=== PATIENT | male | born 1950 | race Caucasian/White ===

== ENCOUNTER 2019-01-20 14:57 | Emergency (ER) | payer MEDICARE ==
[~2019-01-20] VITALS: Ht 175.3 cm; Wt 111.1 kg
[2019-01-20] MEDS ORDERED: SODIUM CHLORIDE 0.9% 1000ML 1,000 ML IV SCH (16:00)
[2019-01-20] MEDS ORDERED: INSULIN REGULAR, HUMAN 100 UNIT/1 ML 3ML VIAL ONE (16:33)
[2019-01-20] MEDS ORDERED: INSULIN REGULAR, HUMAN 100 UNIT/1 ML 3ML VIAL IV ONE ×2 (17:00→18:00)
[2019-01-20] MEDS ORDERED: SODIUM CHLORIDE 0.9% 500ML 500 ML IV ONE (17:00)
[2019-01-20] MEDS ORDERED: SODIUM CHLORIDE 0.9% 500ML 500 ML ONE (17:04)
--- NOTE | 2019-01-20 18:49 | NUR ---
REPORT TO WANDA HERNÁNDEZ ALL QUESTIONS ANSWERED
== END 2019-01-20 19:11 | disposition home or self-care (01) ==
LOC: EDBD 14:57 → FSED 14:57
DX: E11.65 Type 2 diabetes mellitus with hyperglycemia (principal); I10 Essential (primary) hypertension; E78.5 Hyperlipidemia, unspecified; Z91.11 Patient's noncompliance with dietary regimen; Z79.84 Long term (current) use of oral hypoglycemic drugs; Z85.528 Personal history of other malignant neoplasm of kidney; Z90.5 Acquired absence of kidney
CPT/HCPCS: 36415; 80048; 80053; 81003; 82948; 99283; J1817; J7030; J7040

== ENCOUNTER 2020-01-14 11:22 | Emergency (ER) | payer MEDICARE ==
[~2020-01-14] VITALS: Ht 175.3 cm; Wt 109.6 kg
[2020-01-14] MEDS ORDERED: SODIUM CHLORIDE 0.9% 1000ML 1,000 ML IV SCH (11:45)
[2020-01-14] MEDS ORDERED: INSULIN REGULAR, HUMAN 100 UNIT/1 ML 3ML VIAL IV ONE (11:45)
[2020-01-14] MEDS ORDERED: ACTOS45 MG PO (12:01)
[2020-01-14] MEDS ORDERED: NORVASC10 MG PO (12:01)
[2020-01-14] MEDS ORDERED: METFORMIN HCL500 MG PO (12:01)
[2020-01-14] MEDS ORDERED: GLIMEPIRIDE2 MG PO (12:01)
[2020-01-14] MEDS ORDERED: IRBESARTAN-HCT1 EAC1 PO (12:01)
[2020-01-14] MEDS ORDERED: ATENOLOL50 MG PO (12:01)
--- NOTE | 2020-01-14 12:36 | Emergency Department Note ---
History of Present Illnes History of Present Illness Chief Complaint: General Medicine Complaints History of Present Illness This is a 69 year old male . Historian: Patient Arrival Mode: Car Advertising Manager Required: No Location: Pt has no symptoms except increased urination and elevated Glucose at home Radiation: Denies non-radiation, Denies back, Denies neck, Denies extremity, Denies abdomen, Denies periumbilical, Denies flank, Denies proximal, Denies distal, Denies other Severity: mild Onset quality: gradual Duration (how long): day(s) (4 days out of medicaitons) Progression: unchanged Chronicity: new Context: Denies recent illness, Denies recent surgery, Denies recent immobilization, Denies recent travel, Denies trauma/injury, Denies new medications, Denies hx of DVT/PE, Denies non-compliance w/ medications, Denies other Relieving factors: none Exacerbating factors: none Associated symptoms: Denies denies other symptoms, Denies confusion, Denies chest pain, Denies cough, Denies diaphoresis, Denies fever/chills, Denies headaches, Denies loss of appetite, Denies malaise, Denies nausea/vomiting, Denies rash, Denies seizure, Denies shortness of breath, Denies syncope, Denies weakness, Denies other Treatments prior to arrival: none Past Medical/Family History Physician Review I have reviewed the patient's past medical and family history. Any updates have been documented here. Past Medical History Recent Fever: No Clinical Suspicion of Infectio: No New/Unexplained Change in Ment: No Past Medical History: Hypertension, Diabetes, Hyperlipedemia Other Medical History: KIDNEY CANCER Other Surgery: PARTIAL NEPHRECTOMY HERNIA REPAIR Social History Smoking Cessation: Never Smoker Alcohol Use: None Any Illegal Drug Use: No Other Last Tetanus: UTD Physical Exam Related Data Allergies: Coded Allergies: No Known Allergies (Unverified , 01/20/19) Vital signs reviewed: Yes (Hyperetensive) Physical Exam CONSTITUTIONAL Constitutional: Present well-developed HENT HENT: Present normocephalic EYES Eyes: Reports conjunctivae normal NECK Neck: Present supple PULMONARY Pulmonary: Present breath sounds normal CARDIOVASCULAR Cardiovascular: Present regular rhythm GASTROINTESTINAL Abdominal: Present soft GENITOURINARY SKIN Skin: Present warm MUSCULOSKELETAL Musculoskeletal: Present ROM normal NEUROLOGICAL Neurological: Present alert, Present oriented x 3, Present no gross motor or sensory deficits PSYCHOLOGICAL Psychological: Present mood/affect normal Results Laboratory Laboratory CBC Plat 65,000 BMP Gluc 417, Cr 1.8 UA trace ketones Repeat FS 307 Lab results reviewed: Yes Assessment & Plan Medical Decision Making MDM DKA, Hyperglycemia, non compliane Assessment & Plan Final Impression: (1) Diabetes (2) Hyperglycemia (3) Thrombocytopenia (4) Renal insufficiency Depart Disposition: HOME, SELF-half-way Meds Active Scripts Amlodipine Besylate (NORVASC) 10 Mg Tab, 10 MG PO DAILY for 15 Days, #15 Prov:SALBADOR SMITH MD 01/14/20 Irbesartan/Hydrochlorothiazide (IRBESARTAN-HCTZ 300-12.5 MG TB) 1 Each Tablet, 1 TAB PO DAILY for 15 Days, #15 Prov:SALBADOR SMITH MD 01/14/20 Atenolol (ATENOLOL) 50 Mg Tablet, 100 MG PO DAILY for 15 Days, #30 Prov:SALBADOR SMITH MD 01/14/20 Pioglitazone Hcl (ACTOS) 45 Mg Tablet, 45 MG PO DAILY, #15 TAB Prov:SALBADOR SMITH MD 01/14/20 Glimepiride (GLIMEPIRIDE) 2 Mg Tablet, 4 MG PO BID for 15 Days, #60 TAB Prov:SALBADOR SMITH MD 01/14/20 Metformin Hcl (METFORMIN HCL) 500 Mg Tablet, 1000 MG PO BID for 15 Days, #60 TAB Prov:SALBADOR SMITH MD 01/14/20 Medications in the ED Sodium Chloride 1,000 ml @ 0 mls/hr Q0M IV ; Start 01/14/20 at 11:45; Stop at 11:44; Status UNV Insulin Human Regular 8 unit ONCE ONCE IV ; Start 01/14/20 at 11:45; Stop 01/14/20 at 11:46; Status UNV SALBADOR SMITH MD Jan 14, 2020 11:56
[2020-01-14] MEDS ORDERED: SODIUM CHLORIDE 0.9% 1000ML 1,000 ML ONE (12:39)
[2020-01-14] MEDS ORDERED: INSULIN REGULAR, HUMAN 100 UNIT/1 ML 3ML VIAL ONE (12:40)
[2020-01-14 14:02] VITALS: BP 180/100
== END 2020-01-14 14:02 | disposition home or self-care (01) ==
LOC: FSED 12:12
DX: E11.65 Type 2 diabetes mellitus with hyperglycemia (principal); E78.5 Hyperlipidemia, unspecified; Z85.528 Personal history of other malignant neoplasm of kidney; Z90.5 Acquired absence of kidney; I10 Essential (primary) hypertension; D69.6 Thrombocytopenia, unspecified; N28.9 Disorder of kidney and ureter, unspecified; Z79.84 Long term (current) use of oral hypoglycemic drugs
CPT/HCPCS: 36415; 80048; 81003; 82948; 85025; 96374; 99283; J1817; J7030